=== PATIENT | female | born 1960 | race African-American/Black ===

== ENCOUNTER → 2020-09-23 13:09 | Outpatient (BNVA) | payer MEDICARE, MEDICAID, SELFPAY | PROVIDERS: PCP Pediatrics; Referring Provider Internal Medicine; Visit Provider Hospitalist | DX: J96.11 Chronic respiratory failure with hypoxia (principal); I27.0 Primary pulmonary hypertension; J44.9 Chronic obstructive pulmonary disease, unspecified; Z79.899 Other long term (current) drug therapy; Z99.81 Dependence on supplemental oxygen | CPT/HCPCS: 99212 ==

== ENCOUNTER → 2020-10-19 14:05 | Outpatient (REF) | payer MEDICARE, MEDICAID, SELFPAY ==
--- NOTE | 2020-10-19 14:08 | CA_ITS ---
Transthoracic Echocardiogram Patient (Last, First, Middle): Lucia Quach, Gender: Female Date of : 1960 Age: 60 Procedure Date: 10/19/2020 Procedure Type: Transthoracic Echocardiogram Location: OP Height: 170.18 cm Weight: 117.94 kg BSA: 2.26 m2 Heart Rate: bpm BP: 120 / 80 mmHg Nutritionalist: JEREMY Zacarias MD: Larry Chiu MD Repossessor: Deep Vela MD Symptoms: I27.20 - Pulmonary hypertension, unspecified Study Quality: Technically Difficult due to body habitus ECG Rhythm: Sinus with extra beats Conclusions: - 1. Normal LV systolic function with LVEF of 60 65% with septal flattening suggestive of RV pressure overload 2. Severely elevated RV systolic pressure, measured at 103 mm of mercury 3. Remainder of the study is very technically limited due to patient's body habitus and patient declining use of contrast agent Findings Procedure Information The patient declines contrast. Left Ventricle Normal left ventricular cavity size. The left ventricular systolic function is normal. The visually estimated ejection fraction is between 60-65%. Regional wall motion abnormalities can not be excluded due to suboptimal endocardial definition. There is a flattened septum in systole consistent with right ventricular pressure overload. Spectral Doppler is indicative of an impaired relaxation filling pattern. Right Ventricle The right ventricle was not well visualized. Atria The left atrium was not well visualized. The right atrium was not well visualized. Aortic Valve The aortic valve was not well visualized. There is no aortic valve stenosis. Mitral Valve The mitral valve was not well visualized. There is no mitral valve stenosis. Pulmonic Valve The pulmonic valve was not well visualized. Tricuspid Valve Severe pulmonary hypertension is present. Prior Study Comparison Changes noted compared to prior study dated: 09/09/2019. RVSP is further elevated Measurements 2D Linear Measurements IVSd: 1.07 0.6-0.9/0.6-1.0 cm LVIDd: 3.98 3.9-5.3/4.2-5.9 cm LVIDd Index: 1.76 2.4-3.2/2.2-3.1 cm/m2 LVIDs: 2.50 2.0-3.6 cm LVPWd: 1.05 0.7-1.1 cm Ao Root: 3.00 2.1-3.5 cm LA Diam: 3.00 2.7-3.8/3.0-4.0 cm LAIDs Index: 1.33 1.5-2.3 cm/m2 LV Mass: 170.49 67-162/88-224 g LV Mass Index: 75.44 43-95/49-115 g/m2 LVOT Diam: 2.10 3.0+(-)1.3 cm Mitral Valve MV Pk E: 0.68 MV PK A: 0.84 MV Decel Time: 95.00 E/A: 0.80 E'Lateral: 8.92 E/E' Lat: 7.70 PHT: 28.00 MVA PHT: 7.86 Decel Marshall: 7.19 Aortic Valve AoV Pk Prosper: 1.10 AoV Mn Prosper: 0.74 AoV VTI: 0.19 AoV Pk Grad: 5.00 Aov Mn Grad: 3.00 BELKIS Cont.VTI: 2.96 LVOT LVOT Pk Prosper: 1.05 LVOT Mn Prosper: 0.68 LVOT VTI: 0.16 LVOT Pk Grad: 4.00 LVOT Mn Grad: 2.00 LVOT Diam: 2.10 LVOT Area: 3.46 Diastolic Function MV Pk E: 0.68 MV Pk A: 0.84 E/A: 0.80 E' Laterial: 8.92 E/E' Lat: 7.70 Tricuspid Valve TR Pk Prosper: 5.00 TR Pk Grad: 100.00 RA Press: 3.00 RVSP: 103.00 Great Vessels Aorta Ao Root-2D: 3.00 2.0-3.7 cm Ao Asc: 2.80 2.1-3.4 cm Updated in Other Vendor System with Status of Final Deep Vela MD electronically signed on 10/20/2020 10:48:15 AM with status of Final
== END ==
LOC: HO.CARD 14:05
PROVIDERS: Visit Provider Hospitalist
DX: I27.20 Pulmonary hypertension, unspecified (principal)
CPT/HCPCS: 93306

== ENCOUNTER → 2020-12-15 13:29 | Outpatient (BNVA) | payer MEDICARE, MEDICAID, SELFPAY | PROVIDERS: PCP Pediatrics; Visit Provider Hospitalist | DX: Z13.89 Encounter for screening for other disorder (principal) | CPT/HCPCS: Q3014 ==

== ENCOUNTER → 2021-01-12 13:16 | Outpatient (BNVA) | payer MEDICARE, MEDICAID, SELFPAY | PROVIDERS: PCP Pediatrics; Visit Provider Hospitalist | DX: J44.9 Chronic obstructive pulmonary disease, unspecified (principal); G47.33 Obstructive sleep apnea (adult) (pediatric); J96.11 Chronic respiratory failure with hypoxia; J96.12 Chronic respiratory failure with hypercapnia; I27.0 Primary pulmonary hypertension | CPT/HCPCS: 99212 ==

== ENCOUNTER → 2021-03-03 12:39 | Outpatient (REF) | payer MEDICARE, MEDICAID, SELFPAY ==
--- NOTE | 2021-03-03 13:25 | CA_ITS ---
Transthoracic Echocardiogram Patient (Last, First, Middle): Lucia Quach, Gender: Female Date of : 1960 Age: 60 Procedure Date: 03/03/2021 Procedure Type: Transthoracic Echocardiogram Location: OP Height: 170.18 cm Weight: 125.65 kg BSA: 2.32 m2 Heart Rate: bpm BP: 122 / 80 mmHg Other Sales Support Worker: JEREMY Referring MD: Larry Chiu MD Foundation Maker: Deep Vela MD Symptoms: I27.20 - Pulmonary hypertension, unspecified Study Quality: Technically Difficult ECG Rhythm: Sinus Conclusions: - 1. Technically extremely limited study 2. Normal LV systolic function 3. Severely dilated RV with systolic dysfunction 4. Severely elevated right ventricular systolic pressure at 109 mm Hg mildly elevated right atrial pressures 5. Remainder of the cardiac structures difficult to evaluate but cardiac valvular Doppler appeared to be within normal limits Findings Procedure Information Contrast agent, definity, is being given per protocol without apparent complications. Left Ventricle Normal left ventricular size, thickness, and systolic function. The visually estimated ejection fraction is between 60-65%. There is a flattened septum in systole consistent with right ventricular pressure overload. Diastolic function is indeterminate on the basis of available data. Right Ventricle Severely increased right ventricular cavity size. There is moderately decreased right ventricular systolic function. Atria The left atrium was not well visualized. Interatrial shunt cannot be excluded. The right atrium was not well visualized. Aortic Valve The aortic valve was not well visualized. There is no aortic valve stenosis. There is no aortic valve regurgitation. Mitral Valve The mitral valve was not well visualized. There is trace mitral valve regurgitation. There is no mitral valve stenosis. Pulmonic Valve The pulmonic valve was not well visualized. There is mild pulmonic valve regurgitation. Tricuspid Valve The tricuspid valve was not well visualized. There is mild tricuspid valve regurgitation. The right ventricular systolic pressure is 109 mmHg. Mildly elevated right atrial pressure. Severe pulmonary hypertension is present. Great Vessels The aorta was not well visualized. The pulmonary artery was not well visualized. Venous The inferior vena cava is mildly dilated and collapses less than 50% with inspiration. Pericardium/Pleural The pericardium was not well visualized. Prior Study Comparison No significant change compared to prior study dated: 10/19/2020. Measurements 2D Linear Measurements IVSd: 1.34 0.6-0.9/0.6-1.0 cm LVIDd: 4.12 3.9-5.3/4.2-5.9 cm LVIDd Index: 1.78 2.4-3.2/2.2-3.1 cm/m2 LVIDs: 2.38 2.0-3.6 cm LVPWd: 1.35 0.7-1.1 cm Ao Root: 3.30 2.1-3.5 cm LA Diam: 2.90 2.7-3.8/3.0-4.0 cm LAIDs Index: 1.25 1.5-2.3 cm/m2 LV Mass: 255.72 67-162/88-224 g LV Mass Index: 110.23 43-95/49-115 g/m2 LVOT Diam: 2.00 3.0+(-)1.3 cm Mitral Valve MV Pk E: 1.08 MV PK A: 0.91 MV Decel Time: 194.00 E/A: 1.20 E'Lateral: 7.74 E/E' Lat: 14.00 PHT: 57.00 MVA PHT: 3.86 Decel Whitman: 5.59 Aortic Valve AoV Pk Prosper: 1.66 AoV Mn Prosper: 1.16 AoV VTI: 0.33 AoV Pk Grad: 11.00 Aov Mn Grad: 6.00 BELKIS Cont.VTI: 1.39 LVOT LVOT Pk Prosper: 0.67 LVOT Mn Prosper: 0.49 LVOT VTI: 0.14 LVOT Pk Grad: 2.00 LVOT Mn Grad: 1.00 LVOT Diam: 2.00 LVOT Area: 3.14 Diastolic Function MV Pk E: 1.08 MV Pk A: 0.91 E/A: 1.20 E' Laterial: 7.74 E/E' Lat: 14.00 Tricuspid Valve TR Pk Prosper: 5.03 TR Pk Grad: 101.00 RA Press: 8.00 RVSP: 109.00 Great Vessels Aorta Ao Root-2D: 3.30 2.0-3.7 cm Ao Asc: 2.80 2.1-3.4 cm Updated in Other Vendor System with Status of Final Deep Vela MD electronically signed on 03/04/2021 11:41:43 AM with status of Final
== END ==
LOC: HO.CARD 12:39
PROVIDERS: Visit Provider Hospitalist
DX: I27.20 Pulmonary hypertension, unspecified (principal)
CPT/HCPCS: 93306; 99212; Q9957

== ENCOUNTER → 2021-05-02 15:00 | Outpatient (BNVA) | payer MEDICARE, MEDICAID, SELFPAY | PROVIDERS: PCP Pediatrics; Visit Provider Hospitalist | DX: J44.9 Chronic obstructive pulmonary disease, unspecified (principal); G47.33 Obstructive sleep apnea (adult) (pediatric); I27.0 Primary pulmonary hypertension; J96.11 Chronic respiratory failure with hypoxia | CPT/HCPCS: 99212 ==

== ENCOUNTER → 2021-08-01 15:11 | Outpatient (BNVA) | payer MEDICARE, MEDICAID, SELFPAY | PROVIDERS: PCP Pediatrics; Visit Provider Hospitalist | DX: J44.9 Chronic obstructive pulmonary disease, unspecified (principal); J96.11 Chronic respiratory failure with hypoxia; J06.9 Acute upper respiratory infection, unspecified; I27.0 Primary pulmonary hypertension; I27.20 Pulmonary hypertension, unspecified; G47.33 Obstructive sleep apnea (adult) (pediatric) | CPT/HCPCS: Q3014 ==

== ENCOUNTER → 2022-04-16 14:44 | Outpatient (BNVA) | payer MEDICARE, MEDICAID, SELFPAY | PROVIDERS: PCP Internal Medicine; Visit Provider Hospitalist | DX: J44.9 Chronic obstructive pulmonary disease, unspecified (principal); G47.33 Obstructive sleep apnea (adult) (pediatric); I27.0 Primary pulmonary hypertension; J96.11 Chronic respiratory failure with hypoxia | CPT/HCPCS: 99212 ==

== ENCOUNTER → 2022-09-25 15:08 | Outpatient (BNVA) | payer MEDICARE, MEDICAID, SELFPAY | PROVIDERS: PCP Internal Medicine; Visit Provider Hospitalist | DX: J44.9 Chronic obstructive pulmonary disease, unspecified (principal); G47.33 Obstructive sleep apnea (adult) (pediatric); I27.0 Primary pulmonary hypertension; J96.11 Chronic respiratory failure with hypoxia | CPT/HCPCS: 99212 ==

== ENCOUNTER → 2023-03-26 14:22 | Outpatient (BNVA) | payer MEDICARE, MEDICAID, SELFPAY | PROVIDERS: PCP Internal Medicine; Visit Provider Hospitalist | DX: Z01.811 Encounter for preprocedural respiratory examination (principal); J44.9 Chronic obstructive pulmonary disease, unspecified; J96.11 Chronic respiratory failure with hypoxia; I27.0 Primary pulmonary hypertension; G47.33 Obstructive sleep apnea (adult) (pediatric); R04.0 Epistaxis; Z79.899 Other long term (current) drug therapy; Z99.81 Dependence on supplemental oxygen | CPT/HCPCS: 99212 ==

== ENCOUNTER 2023-10-11 09:29 | Outpatient (AMB) | payer MEDICARE, MEDICAID, SELFPAY ==
--- NOTE | 2023-10-11 09:29 | A.OFFVIS_ITS ---
Intake Vital Signs 10/11/23 09:30 Height 5 ft 7 in Weight 236 lb BMI 37.0 Intake Visit Reasons: Lab Results/KARLA Intake Note: pt is on the phone, states she is not good, Older Adult Social Work Specialist Required: No Allergies aspirin [ASPIRIN] Allergy (Severe, Verified 10/11/23 09:30) TRIGGERS ASTHMA hazelnut [HAZELNUT] Allergy (Severe, Verified 10/11/23 09:30) ANAPHYLAXIS iodine [IODINE] Allergy (Severe, Verified 10/11/23 09:30) RASH SHELLFISH Allergy (Severe, Uncoded 10/11/23 09:30) ANAPHYLAXIS HPI HPI Comments History of Present Illness Details Lucia is a 63-year-old woman known morbid obesity, chronic hypoxic respiratory failure, KARLA, pulmonary hypertension and COPD who apparently has worsening respiratory symptoms. The patient has been complaining of worsening shortness of breath and also chest pressure. The chest pressure is moderate severity associated with activity. She also describes a burning sensation in the substernal area that radiates the job. She continues to use her 5 L of oxygen and has been more short of breath. She continues to take her diuretics and her respiratory medications and has not made any difference. She has been reluctant to go to the ER. She also states that her car has a problem where she is getting diffuse from the car in side and she needs to open up the window in order to get fresh air. In the office we did do an EKG demonstrating significant ST and T-wave changes in the anterior cardiology leads. The patient agrees to go to the ER for further evaluation. We did review her cardiac catheterization from [facility] demonstrating that her pulmonary hypertension was mainly post capillary or veno-occlusive disease with normal pulmonary vascular resistance. Although, I do feel that she would benefit from therapy at this time. Recently, had an echocardiogram demonstrating severe pulmonary hypertension. In the meantime we talked about again her pulmonary hypertension. Also has a component of veno-occlusive disease. She was approved to start Adempas, but, he has been concerned about the side effects. 03/26/2023 the patient is here for pulmon gustavo follow-up visit. Since we last spoke she has had multiple ER evaluations for anemia and also epistaxis. Not clear which she has required or ENT had evaluated her since it will have [facility] reports. I did offer her a ENT referral. At this point the patient would like to hold off. She is tolerating the nasal cannula. I did offer her a oxygen mask to minimize nasal irritation. But, the patient does not want a use of oxygen mask specially since is going to be covering her mouth. At this point she is not bleeding. She has required vitamin K infusions and I believe transfusions per patient's report. Patient understands that she is on Eliquis for atrial fibrillation this will make her bleed more. She was offered the Watchman procedure sometime ago and the patient has been reluctant. I did advise her that the Watchman procedure will be the most effective option for her since the decision to stop anticoagulation would be a high risk for strokes in therefore poor quality of life. Therefore I do not believe that stopping the El iquis without and alternative is a reasonable approach. I do believe the patient needs to go back to cardiology to discuss further undergoing the Watchman procedure. From a pulmonary hypertension the patient was referred to [facility] pulmonary. She continues on the PD 5 inhibitor. She had been going to [place] prior to this but she did not want to commute to [place] for her pulmonary hypertension. She does have a follow-up appointment soon at [facility]. She continues use her oxygen between 4-5 L. in addition to this she is using her BiPAP at nighttime. She did have a titration study which was done at [facility] and she discuss that further with [facility]. She continues on the her diuretics. 10/11/2023 the patient is a telehealth vi sit today. She is having hard time getting around the house. Therefore she is pretty much homebound at this time. She has significant amount of walks a goes leaving the house. The patient has been on 5-6 L of oxygen with activity. Even with that she still feels breathless. She did follow-up with the pulmonary hypertension clinic at [facility]. 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 The plan was to continue on the sildenafil this time. The patient has been using her BiPAP. She has chronic respiratory failure. Will go on address to see how effective the BiPAP is by requesting her blood gases from [facility]. If her CO2 is elevated then she does carry a poor prognosis and high risk for hospitalizations. At that point if very CO2 is elevated will consider switching her to AVAPS a noninvasive ventilator to improve her gas exchange done to improve her prognosis overall. She continues with respiratory therapy continue diuresis I did encourage her that if she has a hard time getting around has worsening shortness of breath she should call the ambulance to be taken to the hospital in view of her progressively worsening condition. [facility] Medical History (Updated 03/26/23 @ 14:58 by Larry Chiu MD) Pre-op chest exam Epistaxis Asthma-COPD overlap syndrome KARLA treated with BiPAP Chronic respiratory failure Chronic respiratory failure Pulmonary hypertension Pulmonary veno-occlusive disease Social History Patient Tobacco Use Status: Never used Tobacco Review of Systems Const Denies chills, Reports fatigue, Denies fever(s), Reports weakness and Reports weight gain ENT Denies lip swelling, Reports epistaxis, Reports nasal congestion, Reports post nasal drip and Denies tongue swelling Card Denies chest pain, Reports dyspnea and Reports dyspnea on exertion Resp Reports cough, Reports dyspnea and Reports dyspnea on exertion GI Denies abdominal pain Musc Denies no additional complaints, Reports abnormal gait, Reports back pain, Reports myalgias and Reports limited range of motion Skin/Breast Denies rash Neuro Denies Neuro-related abnormal movements, Reports abnormal gait, Reports paresthesias and Reports weakness Psych Denies no additional complaints Endo Reports fatigue Jeremias/Lymph Denies easy bleeding and Denies lymphadenopathy Aller/Immun Denies lip swelling and Denies tongue swelling Physical Exam Vital Signs: BMI result Body Mass Index 37.0 Const General: cooperative Orientation/consciousness: patient oriented x3 Limitations: physical limitations Resp Effort & Inspection: normal respiratory effort and able to speak in complete sentences Neuro General: patient oriented x3 Assessment & Plan Assessment & Plan (1) Asthma-COPD overlap syndrome: Code(s): J44.9 - Chronic obstructive pulmonary disease, unspecified (2) KARLA treated with BiPAP: Code(s): G47.33 - Obstructive sleep apnea (adult) (pediatric) (3) Pulmonary hypertension: Comment: Has severe pulmonary HTN, out of porportion to her sleep apnea and airway disease. Therefore has a component of WHO class 1. Also has some veno- occlusive disease Code(s): I27.20 - Pulmonary hypertension, unspecified (4) Pulmonary veno-occlusive disease: Code(s): I27.0 - Primary pulmonary hypertension (5) Chronic respiratory failure: Code(s): J96.10 - Chronic respiratory failure, unspecified whether with hypoxia or hypercapnia Qualifiers: Respiratory failure complication: hypoxia Qualified Code(s): J96.11 - Chronic respiratory failure with hypoxia Plan continue Anoro daily continue short-acting beta agonist as needed continue oxygen supplementation 5 L to maintain a pulse ox of 90-95% continue BiPAP with oxygen at nighttime. Requesting blood gases from [facility]. If hypercarbic then we will looking replacing the BIPAP with AVAPS. continue sildenafil the current dose will follow-up with [facility] pulmonary hypertension clinic to assess additional therapies in view of her severe pulmonary hypertension. Should have a repeat cardiac catherization Continue diuresis as prescribed If no better or worse needs to go to the hospital via EMS follow-up 2-3 months Telehealth Telehealth Location of provider rendering services: practice address Location of patient: address on file Patient Identification confirmed using: Name, : Yes Telehealth method: voice only Patient verbally consented to treatment: Yes Patient verbally consented to billing insurance company: Yes Patient informed of any privacy concerns related to visit: Yes Coding Level of Care Code Tele Est Pt Level 4 (63935) Diagnoses Asthma-COPD overlap syndrome J44.9 KARLA treated with BiPAP G47.33 Pulmonary hypertension I27.20 Pulmonary veno-occlusive disease I27.0 Chronic respiratory failure with hypoxia J96.11 Respiratory failure complication: hypoxia Time Spent (min) 15
[2023-10-11 09:30] VITALS: BMI 37.0
== END 2023-10-11 10:03 | disposition home or self-care (01) ==
LOC: HO.HPS 09:29
PROVIDERS: PCP Internal Medicine; Visit Provider Hospitalist
DX: J44.9 Chronic obstructive pulmonary disease, unspecified (principal); G47.33 Obstructive sleep apnea (adult) (pediatric); I27.0 Primary pulmonary hypertension; J96.11 Chronic respiratory failure with hypoxia
CPT/HCPCS: 99442

== ENCOUNTER → 2023-10-11 09:29 | Outpatient (BNVA) | payer MEDICARE, MEDICAID, SELFPAY | PROVIDERS: PCP Internal Medicine; Visit Provider Hospitalist ==

== ENCOUNTER 2023-11-14 14:42 | Outpatient (AMB) | payer MEDICARE, MEDICAID, SELFPAY ==
[2023-11-14 14:43] VITALS: BMI 71.4
--- NOTE | 2023-11-14 14:43 | A.OFFVIS_ITS ---
Intake Vital Signs 11/14/23 14:43 Height 5 ft 7 in Weight 455 lb 14.655 oz BMI 71.4 Intake Visit Reasons: copd Cardiology Technician Required: No Allergies aspirin [ASPIRIN] Allergy (Severe, Verified 11/14/23 14:44) TRIGGERS ASTHMA hazelnut [HAZELNUT] Allergy (Severe, Verified 11/14/23 14:44) ANAPHYLAXIS iodine [IODINE] Allergy (Severe, Verified 11/14/23 14:44) RASH SHELLFISH Allergy (Severe, Uncoded 11/14/23 14:44) ANAPHYLAXIS HPI HPI Comments History of Present Illness Details Lucia is a 63-year-old woman known morbid obesity, chronic hypoxic respiratory failure, KARLA, pulmonary hypertension and COPD who apparently has worsening respiratory symptoms. The patient has been complaining of worsening shortness of breath and also chest pressure. The chest pressure is moderate severity associated with activity. She also describes a burning sensation in the substernal area that radiates the job. She continues to use her 5 L of oxygen and has been more short of breath. She continues to take her diuretics and her respiratory medications and has not made any difference. She has been reluctant to go to the ER. She also states that her car has a problem where she is getting diffuse from the car in side and she needs to open up the window in order to get fresh air. In the office we did do an EKG demonstrating significant ST and T-wave changes in the anterior cardiology leads. The patient agrees to go to the ER for further evaluation. We did review her cardiac catheterization from [facility] demonstrating that her pulmonary hypertension was mainly post capillary or veno-occlusive disease with normal pulmonary vascular resistance. Although, I do feel that she would benefit from therapy at this time. Recently, had an echocardiogram demonstrating severe pulmonary hypertension. In the meantime we talked about again her pulmonary hypertension. Also has a component of veno-occlusive disease. She was approved to start Adempas, but, he has been concerned about the side effects. 03/26/2023 the patient is here for pulmon gustavo follow-up visit. Since we last spoke she has had multiple ER evaluations for anemia and also epistaxis. Not clear which she has required or ENT had evaluated her since it will have [facility] reports. I did offer her a ENT referral. At this point the patient would like to hold off. She is tolerating the nasal cannula. I did offer her a oxygen mask to minimize nasal irritation. But, the patient does not want a use of oxygen mask specially since is going to be covering her mouth. At this point she is not bleeding. She has required vitamin K infusions and I believe transfusions per patient's report. Patient understands that she is on Eliquis for atrial fibrillation this will make her bleed more. She was offered the Watchman procedure sometime ago and the patient has been reluctant. I did advise her that the Watchman procedure will be the most effective option for her since the decision to stop anticoagulation would be a high risk for strokes in therefore poor quality of life. Therefore I do not believe that stopping the Eliquis without and alternative is a reasonable approach. I do believe the patient needs to go back to cardiology to discuss further undergoing the Watchman procedure. From a pulmonary hypertension the patient was referred to [facility] pulmonary. She continues on the PD 5 inhibitor. She had been going to [place] prior to this but she did not want to commute to [place] for her pulmonary hypertension. She does have a follow-up appointment soon at [facility]. She continues use her oxygen between 4-5 L. in addition to this she is using her BiPAP at nighttime. She did have a titration study which was done at [facility] and she discuss that further with [facility]. She continues on the her diuretics. 10/11/2023 the patient is a telehealth vi sit today. She is having hard time getting around the house. Therefore she is pretty much homebound at this time. She has significant amount of walks a goes leaving the house. The patient has been on 5-6 L of oxygen with activity. Even with that she still feels breathless. She did follow-up with the pulmonary hypertension clinic at [facility]. 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 The plan was to continue on the sildenafil this time. The patient has been using her BiPAP. She has chronic respiratory failure. Will go on address to see how effective the BiPAP is by requesting her blood gases from [facility]. If her CO2 is elevated then she does carry a poor prognosis and high risk for hospitalizations. At that point if very CO2 is elevated will consider switching her to AVAPS a noninvasive ventilator to improve her gas exchange done to improve her prognosis overall. She continues with respiratory therapy continue diuresis I did encourage her that if she has a hard time getting around has worsening shortness of breath she should call the ambulance to be taken to the hospital in view of her progressively worsening condition. 11/14/2023 the patient has a telehealth visit today. She has a hard time ambulating. She is also now having hard time lying on her back. I believe she may have a pressure ulcer. She is become significantly debilitated in house bound. She continues on her oxygen between 5 and 6 L of oxygen. And she still trying to get a portable oxygen concentrator that can handle that amount of oxygen in order to have better portability outside of the home specially because she has a hard time with very heavy tanks. Explained to her that at this point there has no options Except to try to get her on lower oxygen flow. She will try to cut down to 4 however she has not convinced that she is going to be able to tolerate that. She also did get the noninvasive ventilator. The noninvasive the the ventilator has been very affecting beneficial for her. She does use it with 5 L of oxygen at nighttime she has been noticing improvement. The next visit will do here in the office and will plan to do blood work to assess her venous blood gas at that time. She continues on the sildenafil twice a day as per the recommendations of her pulmonary hypertension specialist. In the future we can also consider switching her to a once a day regimen which may be able to tolerate better. Unfortunately, the patient does have veno-occlusive disease making it difficult for her to tolerate most of the vasodilators therapy. [facility] Medical History (Updated 03/26/23 @ 14:58 by Lrary Chiu MD) Pre-op chest exam Epistaxis Asthma-COPD overlap syndrome KARLA treated with BiPAP Chronic respiratory failure Chronic respiratory failure Pulmonary hypertension Pulmonary veno-occlusive disease Social History Patient Tobacco Use Status: Never used Tobacco Review of Systems Const Denies chills, Reports fatigue, Denies fever(s), Reports weakness and Reports weight gain ENT Denies lip swelling, Reports epistaxis, Reports nasal congestion, Reports post nasal drip and Denies tongue swelling Card Denies chest pain, Reports dyspnea and Reports dyspnea on exertion Resp Reports cough, Reports dyspnea and Reports dyspnea on exertion GI Denies abdominal pain Musc Denies no additional complaints, Reports abnormal gait, Reports back pain, Reports myalgias and Reports limited range of motion Skin/Breast Denies rash, Reports skin pain, Reports skin ulcer and Reports sores Neuro Denies Neuro-related abnormal movements, Reports abnormal gait, Reports paresthesias and Reports weakness Psych Denies no additional complaints Endo Reports fatigue Jeremias/Lymph Denies easy bleeding and Denies lymphadenopathy Aller/Immun Denies lip swelling and Denies tongue swelling Physical Exam Vital Signs: BMI result Body Mass Index 71.4 Const General: cooperative Orientation/consciousness: patient oriented x3 Limitations: physical limitations Resp Effort & Inspection: normal respiratory effort and able to speak in complete sentences Neuro General: patient oriented x3 Assessment & Plan Assessment & Plan (1) Asthma-COPD overlap syndrome: Code(s): J44.9 - Chronic obstructive pulmonary disease, unspecified (2) KARLA treated with BiPAP: Code(s): G47.33 - Obstructive sleep apnea (adult) (pediatric) (3) Pulmonary hypertension: Comment: Has severe pulmonary HTN, out of porportion to her sleep apnea and airway disease. Therefore has a component of WHO class 1. Also has some veno- occlusive disease Code(s): I27.20 - Pulmonary hypertension, unspecified (4) Pulmonary veno-occlusive disease: Code(s): I27.0 - Primary pulmonary hypertension (5) Chronic respiratory failure: Code(s): J96.10 - Chronic respiratory failure, unspecified whether with hypoxia or hypercapnia Qualifiers: Respiratory failure complication: hypoxia Qualified Code(s): J96.11 - Chronic respiratory failure with hypoxia Plan continue Anoro daily continue short-acting beta agonist as needed continue oxygen supplementation 5 L, will try to cut down on the oxygen to keep pox 90=96 continue AVAPS on 5L ([facility]). continue sildenafil the current dose Continue diuresis as prescribed follow-up 2-3 months Telehealth Telehealth Location of provider rendering services: practice address Location of patient: address on file Patient Identification confirmed using: Name, : Yes Telehealth method: voice only Patient verbally consented to treatment: Yes Patient verbally consented to billing insurance company: Yes Patient informed of any privacy concerns related to visit: Yes Coding Level of Care Code Tele Est Pt Level 4 (82224) Diagnoses Asthma-COPD overlap syndrome J44.9 KARLA treated with BiPAP G47.33 Pulmonary hypertension I27.20 Pulmonary veno-occlusive disease I27.0 Chronic respiratory failure with hypoxia J96.11 Respiratory failure complication: hypoxia Time Spent (min) 15
== END 2023-11-14 15:02 | disposition home or self-care (01) ==
LOC: HO.HPS 14:42
PROVIDERS: PCP Internal Medicine; Visit Provider Hospitalist
DX: J44.9 Chronic obstructive pulmonary disease, unspecified (principal); G47.33 Obstructive sleep apnea (adult) (pediatric); I27.0 Primary pulmonary hypertension; J96.11 Chronic respiratory failure with hypoxia
CPT/HCPCS: 99442

== ENCOUNTER → 2023-11-14 14:42 | Outpatient (BNVA) | payer MEDICARE, MEDICAID, SELFPAY | PROVIDERS: PCP Internal Medicine; Visit Provider Hospitalist ==

== ENCOUNTER 2024-03-05 10:33 | Outpatient (AMB) | payer MEDICARE, MEDICAID, SELFPAY ==
[2024-03-05 10:38] VITALS: BP 110/60; PULSE 90; O2SAT 98; BMI 39.8
--- NOTE | 2024-03-05 10:38 | A.OFFVIS_ITS ---
Vital Signs 03/05/24 10:38 Height 5 ft 7 in Weight 254 lb BMI 39.8 BP 110/60 Blood Pressure Location Rt brachial Position Sitting Pulse 90 Pulse Source Pulse Oximeter Pulse Oximetry (%) 98 Oxygen Delivery Method Room Air Comment 5 Liters Oxygen([facility]) Intake Visit Reasons: Oxygen Renewal Business Information Manager Required: No Allergies aspirin [ASPIRIN] Allergy (Severe, Verified 03/05/24 10:41) TRIGGERS ASTHMA hazelnut [HAZELNUT] Allergy (Severe, Verified 03/05/24 10:41) ANAPHYLAXIS iodine [IODINE] Allergy (Severe, Verified 03/05/24 10:41) RASH SHELLFISH Allergy (Severe, Uncoded 03/05/24 10:41) ANAPHYLAXIS HPI Comments Details: Lucia is a 63-year-old woman known morbid obesity, chronic hypoxic respiratory failure, KARLA, pulmonary hypertension and COPD who apparently has worsening respiratory symptoms. The patient has been complaining of worsening shortness of breath and also chest pressure. The chest pressure is moderate severity associated with activity. She also describes a burning sensation in the substernal area that radiates the job. She continues to use her 5 L of oxygen and has been more short of breath. She continues to take her diuretics and her respiratory medications and has not made any difference. She has been reluctant to go to the ER. She also states that her car has a problem where she is getting diffuse from the car in side and she needs to open up the window in order to get fresh air. In the office we did do an EKG demonstrating significant ST and T-wave changes in the anterior cardiology leads. The patient agrees to go to the ER for further evaluation. We did review her cardiac catheterization from [facility] demonstrating that her pulmonary hypertension was mainly post capillary or veno-occlusive disease with normal pulmonary vascular resistance. Although, I do feel that she would benefit from therapy at this time. Recently, had an echocardiogram demonstrating severe pulmonary hypertension. In the meantime we talked about again her pulmonary hypertension. Also has a component of veno-occlusive disease. She was approved to start Adempas, but, he has been concerned about the side effects. 03/26/2023 the patient is here for pulmonary follow-up visit. Since we last spoke she has had multiple ER evaluations for anemia and also epistaxis. Not clear which she has required or ENT had evaluated her since it will have [facility] reports. I did offer her a ENT referral. At this point the patient would like to hold off. She is tolerating the nasal cannula. I did offer her a oxygen mask to minimize nasal irritation. But, the patient does not want a use of oxygen mask specially since is going to be covering her mouth. At this point she is not bleeding. She has required vitamin K infusions and I believe transfusions per patient's report. Patient understands that she is on Eliquis for atrial fibrillation this will make her bleed more. She was offered the Watchman procedure sometime ago and the patient has been reluctant. I did advise her that the Watchman procedure will be the most effective option for her since the decision to stop anticoagulation would be a high risk for strokes in therefore poor quality of life. Therefore I do not believe that stopping the Eliquis without and alternative is a reasonable approach. I do believe the patient needs to go back to cardiology to discuss further undergoing the Watchman procedure. From a pulmonary hypertension the patient was referred to [facility] pulmonary. She continues on the PD 5 inhibitor. She had been going to [place] prior to this but she did not want to commute to [place] for her pulmonary hypertension. She does have a follow-up appointment soon at [facility]. She continues use her oxygen between 4-5 L. in addition to this she is using her BiPAP at nighttime. She did have a titration study which was done at [facility] and she discuss that further with [facility]. She continues on the her diuretics. 10/11/2023 the patient is a telehealth visit today. She is having hard time getting around the house. Therefore she is pretty much homebound at this time. She has significant amount of walks a goes leaving the house. The patient has been on 5-6 L of oxygen with activity. Even with that she still feels breathle ss. She did follow-up with the pulmonary hypertension clinic at [facility]. 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 The plan was to continue on the sildenafil this time. The patient has been using her BiPAP. She has chronic respiratory failure. Will go on address to see how effective the BiPAP is by requesting her blood gases from [facility]. If her CO2 is elevated then she does carry a poor prognosis and high risk for hospitalizations. At that point if very CO2 is elevated will consider switching her to AVAPS a noninvasive ventilator to improve her gas exchange done to improve her prognosis overall. She continues with respiratory therapy continue diuresis I did encourage her that if she has a hard time getting around has worsening shortness of breath she should call the ambulance to be taken to the hospital in view of her progressively worsening condition. 11/14/2023 the patient has a telehealth visit today. She has a hard time ambulating. She is also now having hard time lying on her back. I believe she may have a pressure ulcer. She is become significantly debilitated in house bound. She continues on her oxygen between 5 and 6 L of oxygen. And she still trying to get a portable oxygen concentrator that can handle that amount of oxygen in order to have better portability outside of the home specially because she has a hard time with very heavy tanks. Explained to her that at this point there has no options Except to try to get her on lower oxygen flow. She will try to cut down to 4 however she has not convinced that she is going to be able to tolerate that. She also did get the noninvasive ventilator. The noninvasive the the ventilator has been very affecting beneficial for her. She does use it with 5 L of oxygen at nighttime she has been noticing improvement. The next visit will do here in the office and will plan to do blood work to assess her venous blood gas at that time. She continues on the sildenafil twice a day as per the recommendations of her pulmonary hypertension specialist. In the future we can also consider switching her to a once a day regimen which may be able to tolerate better. Unfortunately, the patient does have veno-occlusive disease making it difficult for her to tolerate most of the vasodilators therapy. 03/05/2024 the patient is here for a pulmonary follow-up visit. Overall the patient has been doing fair. She has been admitted to the [facility] multiple times due to her cardiac conditions congestive heart failure. I do not have the documentation so does admissions to the hospital. The patient has been having significant weight loss. She continues use her oxygen as prescribed. She typically keeps it at 5 L through the concentrator. We did rem ove the oxygen from her and the patient did desaturate on room air below 88% and therefore she was placed on 2 L maintaining a pulse ox of 96%. The patient was ambulated briefly and she did need 5 L to maintain a pulse ox of 94% with activity. The patient however has a hard time adjusting her concentrator since is far away from her. The patient does have a noninvasive ventilator that she uses at nighttime. The noninvasive ventilator has been affecting beneficial and she does use it every night. However, she keeps it upstairs in her bedroom. Sometimes she is fatigued and she can not make it upstairs and does stays she just uses her oxygen. She would like to get a chair lift to make it to her bedroom every night. And at this point she does not want to change her bedroom to the downstairs living room area. She will consider that in the future. No imaging studies to review. The patient will get a repeat blood gas prior to the next visit to assess her response to the noninvasive ventilator. [facility] Medical History (Updated 03/26/23 @ 14:58 by Larry Chiu MD) Pre-op chest exam Epistaxis Asthma-COPD overlap syndrome KARLA treated with BiPAP Chronic respiratory failure Chronic respiratory failure Pulmonary hypertension Pulmonary veno-occlusive disease Social History Patient Tobacco Use Status: Never used Tobacco Review of Systems Const Denies chills, Reports fatigue, Denies fever(s), Reports weakness and Reports weight loss ENT Denies lip swelling, Denies epistaxis, Reports nasal congestion, Reports post nasal drip and Denies tongue swelling Card Denies chest pain, Reports dyspnea and Reports dyspnea on exertion Resp Reports cough, Reports dyspnea and Reports dyspnea on exertion GI Denies abdominal pain Musc Denies no additional complaints, Reports abnormal gait, Reports back pain, Reports myalgias and Reports limited range of motion Skin/Breast Denies rash and Reports skin pain Neuro Denies Neuro-related abnormal movements, Reports abnormal gait, Reports paresthesias and Reports weakness Psych Denies no additional complaints Endo Reports fatigue Jeremias/Lymph Denies easy bleeding and Denies lymphadenopathy Aller/Immun Denies lip swelling and Denies tongue swelling Physical Exam Vital Signs: Last Vital Signs Pulse 90 03/05/24 10:38 BP 110/60 03/05/24 10:38 Pulse Ox 98 03/05/24 10:38 Oxygen Delivery Method Room Air 03/05/24 10:38 BMI result Body Mass Index 39.8 Const General: alert Neck Neck: Yes normal visual inspection, Yes full ROM and Yes no lymphadenopathy Chest Chest palpation & inspection: normal inspection of the chest Resp Auscultation: diminished lung sounds Cardio Rate: regular rate Rhythm: regular rhythm Heart sounds: S1 normal heart sound present and S2 normal heart sound present (+pronounced S2) GI Palpation (GI): Soft to palpation and nontender Auscultation: normal bowel sounds Skin General skin exam: rashes and/or lesions noted Office Procedures 6 Minute Walk Time:: 21:40 SPO2 % at rest: 88 Pulse at rest: 90 Distance in yards walked: 50 Jenny Score: 7 Supplemental Oxygen: The patientwas placed on 2 L at rest maintaining a pulse ox of 96%. she was ambulated and desaturated down to 88%. Her oxygen was slowly titrated up to up to 5 L to maintain a pulse ox of 94%. She only walk short distance. The patient was visibly dyspneic. [id number] - 6 Minute Walk Assessment & Plan Assessment & Plan (1) Asthma-COPD overlap syndrome: Code(s): J44.9 - Chronic obstructive pulmonary disease, unspecified Category: Medical (2) KARLA treated with BiPAP: Code(s): G47.33 - Obstructive sleep apnea (adult) (pediatric) Category: Medical (3) Pulmonary hypertension: Comment: Has severe pulmonary HTN, out of porportion to her sleep apnea and airway disease. Therefore has a component of WHO class 1. Also has some veno- occlusive disease Code(s): I27.20 - Pulmonary hypertension, unspecified Category: Medical (4) Pulmonary veno-occlusive disease: Code(s): I27.0 - Primary pulmonary hypertension Category: Medical (5) Chronic respiratory failure: Code(s): J96.10 - Chronic respiratory failure, unspecified whether with hypoxia or hypercapnia Category: Medical Qualifiers: Respiratory failure complication: hypoxia Qualified Code(s): J96.11 - Chronic respiratory failure with hypoxia Plan continue Anoro daily continue short-acting beta agonist as needed continue oxygen supplementation 2L at rest, 5L with activity continue AVAPS on 5L ([facility]). continue sildenafil the current dose Continue diuresis as prescribed follow-up 4-6 months Coding Level of Care Code Est Pt Level 4 (62565) Diagnoses Asthma-COPD overlap syndrome J44.9 KARLA treated with BiPAP G47.33 Pulmonary hypertension I27.20 Pulmonary veno-occlusive disease I27.0 Chronic respiratory failure with hypoxia J96.11 Respiratory failure complication: hypoxia CPT Codes Coding ([id number]) Time Spent (min) 18
[2024-03-05 21:39] VITALS: PULSE 90; O2SAT 88
== END 2024-03-05 11:06 | disposition home or self-care (01) ==
PROVIDERS: PCP Internal Medicine; Visit Provider Hospitalist
DX: J44.9 Chronic obstructive pulmonary disease, unspecified (principal); G47.33 Obstructive sleep apnea (adult) (pediatric); I27.0 Primary pulmonary hypertension; J96.11 Chronic respiratory failure with hypoxia
CPT/HCPCS: 94618; 99214

== ENCOUNTER → 2024-03-05 10:33 | Outpatient (BNVA) | payer MEDICARE, MEDICAID, SELFPAY | PROVIDERS: PCP Internal Medicine; Visit Provider Hospitalist | DX: J44.9 Chronic obstructive pulmonary disease, unspecified (principal); G47.33 Obstructive sleep apnea (adult) (pediatric); I27.20 Pulmonary hypertension, unspecified; I27.0 Primary pulmonary hypertension; J96.11 Chronic respiratory failure with hypoxia | CPT/HCPCS: 94618; 99212 ==